=== PATIENT | male | born 1965 | race Caucasian/White ===

== ENCOUNTER 2019-01-28 04:07 | Emergency (ER) | payer MEDICARE, MEDICAID ==
[2019-01-28 04:08] VITALS: BMI 31.6
[2019-01-28] MEDS ORDERED: GLUCOPHAGE500 MG PO (04:11)
[2019-01-28] MEDS ORDERED: SEROQUEL25 MG PO (04:11)
[2019-01-28 04:37] LABS: BASOPHILS 0.4 % (0-2); EOSINOPHILS 5.4 % (0-7); HEMATOCRIT 33.4 % (42.0-54.0); HEMOGLOBIN 10.8 g/dL (13.5-17.5); IMMATURE GRANULOCYTES 0.2 % (0-5); LYMPHOCYTES 20.1 % (15-50); MCH 28.8 pg (26.0-34.0); MCHC 32.3 g/dL (31.0-37.0); MCV 89.1 fL (80.0-100.0); MEAN PLATELET VOLUME 9.6 fL (7.4-10.4); MONOCYTES 13.5 % (2-11); NEUTROPHILS 60.4 % (40-80); PLATELET COUNT 145 10x3/uL (130-400); RBC 3.75 10x6/uL (4.20-6.10); RDW 15.1 % (11.5-14.5); WBC 4.8 10x3/uL (4.8-10.8)
[2019-01-28 04:54] LABS: ALBUMIN 3.3 g/dL (3.4-5.0); ANION GAP 13.1 mmol/L (8-16); BILIRUBIN - TOTAL 0.54 mg/dL (0.2-1.3); CALCIUM 8.3 mg/dL (8.5-10.1); CARBON DIOXIDE 24.4 mmol/L (21.0-32.0); CREATININE - SERUM 1.3 mg/dL (0.6-1.3); POTASSIUM - SERUM 3.5 mmol/L (3.5-5.1); PROTEIN - SERUM 6.2 g/dL (6.4-8.2)
[2019-01-28 05:02] LABS: MAGNESIUM - SERUM 1.9 mg/dL (1.8-2.4); TROPONIN-I 0.04 ng/mL (0.000-0.060)
[2019-01-28] MEDS ORDERED: MECLIZINE HCL25 MG PO (05:57)
[2019-01-28 06:47] VITALS: BP 136/77
== END 2019-01-28 06:46 | disposition home or self-care (01) ==
LOC: D.ER 04:07
PROVIDERS: Family Medicine
DX: R42 Dizziness and giddiness (principal); F31.9 Bipolar disorder, unspecified; E11.9 Type 2 diabetes mellitus without complications